=== PATIENT | female | born 1960 | race Caucasian/White ===

== ENCOUNTER 2017-03-23 20:57 | Emergency (ER) | payer OTHER, BC ==
[~2017-03-23] VITALS: Ht 165.1 cm; Wt 204.5 kg
[~2017-03-23 20:57] MED LIST: ALEVE220 MG PO; GABAPENTIN100 MG PO; LANTUS 3 M100 UNITS1 SC; LEVOTHYROXINE100 MCG PO
[2017-03-23 21:55] LABS: HEMOGLOBIN 9.9 G/DL (11.9-15.5); MCH 28.8 PG (29.0-34.0); MCHC 30.9 G/DL (30.0-36.0); PLATELET COUNT 116 K/uL (156-360); RBC DIS.WIDTH-CV 19.2 % (11.8-14.6); RBC DIS.WIDTH-SD 65.8 % (39-53); RED BLOOD COUNT 3.44 M/uL (3.80-5.20); WHITE BLOOD COUNT 4.4 K/uL (4.1-10.2)
[2017-03-23 22:04] LABS: CHLORIDE 101 mEq/L (99-109); POTASSIUM 4.3 mEq/L (3.7-5.4); SODIUM 140 mEq/L (136-147)
[2017-03-23 22:06] LABS: GLUCOSE 76 mg/dL (70-99)
[2017-03-23 22:09] LABS: SERUM ETHYL ALCOHOL < 10 mg/dL
[2017-03-23 22:10] LABS: CREATININE 0.8 mg/dL (0.6-1.3); GFR ESTIMATE (CALCULATED) > 59 mL/min/
[2017-03-23 22:11] LABS: UREA NITROGEN (BUN) 12 mg/dL (9-23)
[2017-03-23] MEDS ORDERED: HALDOL5 MG PO (22:13)
[2017-03-23 22:35] LABS: CARBON DIOXIDE (BICARBONATE) > 40.0 MEQ/L (20-31); VENOUS PCO2 73 mm Hg (41-51)
[2017-03-23 23:59] LABS: AMPHETAMINE NEGATIVE (500 ng/mL); BARBITURATES NEGATIVE (200 ng/mL); BENZODIAZEPINES NEGATIVE (150 ng/mL); BUPRENORPHINE NEGATIVE (10 ng/mL); COCAINE NEGATIVE (150 ng/mL); METHADONE NEGATIVE (200 ng/mL); METHAMPHETAMINE NEGATIVE (500 ng/mL); OPIATES (MORPHINE) NEGATIVE (100 ng/mL); OXYCODONE NEGATIVE (100 ng/mL); PHENCYCLIDINE NEGATIVE (25 ng/mL); PROPOXYPHENE NEGATIVE (300 ng/mL); THC CANNABINOIDS NEGATIVE (50 ng/mL); TRICYCLIC ANTIDEPRESSANTS NEGATIVE (300 ng/mL)
[2017-03-24 06:18] VITALS: BP 150/71
== END 2017-03-24 06:18 | disposition home or self-care (01) ==
LOC: EME 20:57
PROVIDERS: Emergency Medicine Emergency Medical Services
DX: R44.1 Visual hallucinations (principal); R44.0 Auditory hallucinations; R06.89 Other abnormalities of breathing; E11.9 Type 2 diabetes mellitus without complications; Z79.4 Long term (current) use of insulin; E03.9 Hypothyroidism, unspecified; Z88.1 Allergy status to other antibiotic agents; Z88.6 Allergy status to analgesic agent
CPT/HCPCS: 80048; 82803; 82810; 85027; 99281; 99285; G0480; J1630